=== PATIENT | male | born 1940 | race Caucasian/White ===

== ENCOUNTER 2023-02-05 08:56 | Emergency (ER) | payer OTHER, MEDICARE, SELFPAY ==
[2023-02-05] VITALS (7 sets, daily range): BP systolic 104–150; BP diastolic 66–77; PULSE 90–120; RESP 15–23; TEMP 36.5–36.8; O2SAT 95–97; BMI 33.0
--- NOTE | 2023-02-05 08:57 | HMH.EDGENADL ---
Discharge Plan Disposition Patient Disposition: Home, Self-Care Condition: Good Prescriptions Prescriptions: No Action aspirin 81 mg Tablet 81 mg PO DAILY nifedipine 30 mg Tablet Extended Release 30 mg PO DAILY fluoxetine 20 mg Tablet 20 mg PO DAILY atorvastatin 80 mg Tablet 80 mg PO DAILY isosorbide mononitrate [Imdur] 30 mg Tablet Extended Release 24 Hr 30 mg PO DAILY allopurinol 100 mg Tablet 100 mg PO DAILY benazepril 40 mg Tablet 40 mg PO DAILY buspirone 15 mg Tablet 30 mg PO BID Referrals Follow up/Referrals: Jerald Waterman [Primary Care Provider] - See instructions Clinical Impressions Clinical Impression: Acute shoulder pain due to trauma Qualifiers: Laterality: right Qualified Code(s): M25.511 - Pain in right shoulder Instructions Patient Instructions: How To Perform RICE (Rest, Ice, Compress, Elevate) Discharge ED Provider: Willie Turcios General Adult HPI General Chief complaint: Extremity Injury, Upper Stated complaint: Fall, R shoulder pain Time Seen by Provider: 02/05/23 08:57 History of Present Illness HPI narrative: Patient presents for evaluation of right shoulder pain, described as moderate in severity and nonradiating, with no previous therapies, after nonsyncopal fall from standing. Patient has associated injury of right great toe. All injuries are closed. No numbness or tingling, no blood thinner usage. No head injury, no midline back or neck pain. No loss of consciousness. Related Data Home Medications Medication Instructions Recorded Confirmed allopurinol 100 mg tablet 100 mg PO DAILY gout 02/05/23 02/05/23 aspirin 81 mg tablet 81 mg PO DAILY antiplatelet therapy 02/05/23 02/05/23 atorvastatin 80 mg tablet 80 mg PO DAILY High Cholesterol 02/05/23 02/05/23 benazepril 40 mg tablet 40 mg PO DAILY High Blood Pressure 02/05/23 02/05/23 buspirone 15 mg tablet 30 mg PO BID mood 02/05/23 02/05/23 fluoxetine 20 mg tablet 20 mg PO DAILY mood 02/05/23 02/05/23 isosorbide mononitrate 30 mg 30 mg PO DAILY Chest Pain 02/05/23 02/05/23 tablet,extended release 24 hr nifedipine 30 mg tablet,extended 30 mg PO DAILY High Blood Pressure 02/05/23 02/05/23 release Allergies Allergy/AdvReac Type Severity Reaction Status Date / Time lisinopril AdvReac Verified 02/05/23 09:09 [facility] Disclaimer: The information contained in this section may have been updated after the patient was seen, as this information can be updated by other users. Medical History (Updated 02/05/23 @ 11:05 by Willie Turcios MD) Gout High blood pressure High cholesterol Mood disorder Social History Smoking Status: Former smoker alcohol intake: current current occupational status: other Travel in the last 8 weeks: None ROS Obtained: Yes Systems reviewed as appropriate & no additional complaints except as documented Physical Exam General General appearance: alert and in no apparent distress Head Head exam: atraumatic and normocephalic Eye Eye exam: Present normal appearance Neck Neck exam: Present normal inspection Chest Chest inspection: Present normal inspection and symmetric chest wall rise Respiratory Respiratory exam: Present normal lung sounds bilaterally; Absent respiratory distress Cardiovascular Cardiovascular exam: Present regular rate and normal rhythm Abdominal Exam Abdominal exam: Present soft Extremities Exam Extremities exam: Present other (Diffuse right upper extremity tenderness to palpation, distally neurovascularly intact, right great toe tender to palpation, normal capillary refill, compartments soft.) Back Exam Back exam: Present other (No evidence of head injury or midline spinal tenderness to palpation.) Neurological Exam Neurological exam: Present alert and oriented X3 Psychiatric Psychiatric exam: Present normal affect and normal mood Skin Skin exam: Present warm and dry Medical Decision Making Medic
--- NOTE | 2023-02-05 09:08 | PC.NURSE ---
Dr. Turcios at to speak with pt
--- NOTE | 2023-02-05 09:13 | XR_ITS ---
FINAL REPORT CLINICAL HISTORY: fall, acute on chronic pain FINDINGS: Right humerus Two views were obtained. There is no acute fracture or dislocation. The joint spaces appear normal. No soft tissue abnormality is identified. IMPRESSION: No acute process. Reviewed, Interpreted and Dictated by Roberto Love MD Transcribed by Alejandrina Man Authenticated and . [facility]
--- NOTE | 2023-02-05 09:13 | XR_ITS ---
FINAL REPORT CLINICAL HISTORY: fall, bruising, pain, great toe FINDINGS: Right toes Two views were obtained. There is no acute fracture or dislocation. The bones are osteopenic. There are mild hypertrophic changes of the 1st interphalangeal joint. No soft tissue abnormality is identified. IMPRESSION: No acute process. Reviewed, Interpreted and Dictated by Roberto Love MD Transcribed by Alejandrina Man Authenticated and . [facility]
--- NOTE | 2023-02-05 09:13 | XR_ITS ---
FINAL REPORT CLINICAL HISTORY: fall, acute on chronic pain FINDINGS: Right elbow Three views were obtained. There is no acute fracture or dislocation. There is a prominent ossific protuberance over the posterior olecranon, probably due to osteophytes. There are mild hypertrophic changes at the medial joint margin. No joint effusion is identified. IMPRESSION: No acute process. Reviewed, Interpreted and Dictated by Roberto Love MD Transcribed by Alejandrina Man Authenticated and [facility]
--- NOTE | 2023-02-05 09:13 | XR_ITS ---
FINAL REPORT CLINICAL HISTORY: fall, acute on chronic pain FINDINGS: Right shoulder Three views were obtained. There is no acute fracture or dislocation. Stimulator device is seen in the right upper anterior chest wall. There are moderate hypertrophic changes of the AC joint. The glenohumeral joint is intact. No soft tissue abnormality is identified. IMPRESSION: No acute process. Reviewed, Interpreted and Dictated by Roberto Love MD Transcribed by Alejandrina Man Authenticated and . [facility]
--- NOTE | 2023-02-05 09:25 | PC.NURSE ---
RAD at for CXR
--- NOTE | 2023-02-05 10:19 | PC.NURSE ---
Rounded on pt, he reports a decrease in pain, educated we are waiting on xr reports. Pt denied any needs at this time.
== END 2023-02-05 11:43 | disposition home or self-care (01) ==
PROVIDERS: Emergency Provider Emergency Medicine; PCP Internal Medicine
DX: M25.511 Pain in right shoulder (principal); M10.9 Gout, unspecified; E78.00 Pure hypercholesterolemia, unspecified; Z87.891 Personal history of nicotine dependence; W18.30XA Fall on same level, unspecified, initial encounter
CPT/HCPCS: 73030; 73060; 73070; 73660; 99285